=== PATIENT | male | born 1965 | race Caucasian/White ===

== ENCOUNTER 2017-11-29 11:24 | Emergency (ER) | payer OTHER ==
[2017-11-29] MEDS ORDERED: Nitroglycerin 0.4 MG Tab.SL SL PRN (11:36)
[2017-11-29] MEDS ORDERED: Clopidogrel 75 MG Tab PO ONE (11:36)
[2017-11-29] MEDS ORDERED: Morphine 2 MG/ML Syringe IVPUSH PRN (11:36)
[2017-11-29] MEDS ORDERED: Sodium Chloride 0.9% 10 ML Syringe FLUSH PRN ×2 (11:36)
[2017-11-29] MEDS ORDERED: Aspirin 81 MG Tab.Chew PO ONE (11:36)
[2017-11-29] MEDS ORDERED: Nitroglycerin/D5W 25 MG/250 ML BOTTLE IV SCH (11:45)
[2017-11-29] MEDS ORDERED: Metoprolol Tartrate 5 MG/5 ML SDV IVPUSH SCH (11:45)
--- NOTE | 2017-11-29 11:55 | EDM.PDOC ---
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) Gastrointestinal History: Reports: GERD Social & Family History - Tobacco Use Smoking Status *Q: Never Smoker ED ROS GENERAL - Review of Systems Review Of Systems: See Below Constitutional: Reports: Diaphoresis Respiratory: Reports: Shortness of Breath Cardiovascular: Reports: Chest Pain GI/Abdominal: Reports: Nausea ED EXAM, GENERAL - Physical Exam Exam: See Below Exam Limited By: No Limitations General Appearance: Alert, Moderate Distress Neck: Normal Inspection, Supple, Non-Tender, Full Range of Motion Respiratory/Chest: No Respiratory Distress, Lungs Clear, Normal Breath Sounds, No Accessory Muscle Use Cardiovascular: Regular Rate, Rhythm, No Murmur GI/Abdominal: Soft, Non-Tender EKG INTERPRETATION EKG Date: 11/29/17 Rhythm: NSR ST-T: Elevated Comparison: NA - No Prior EKG Course - Orders/Labs/Meds Orders: Active Orders 24 hr Category Date Time Status EKG Documentation Completion [RC] ASDIRECTED Care 11/29/17 11:38 Ordered Peripheral IV Care [RC] . DIRECTED Care 11/29/17 11:37 Ordered Metoprolol Tartrate [Lopressor] Med 11/29/17 11:45 Ordered 5 mg IVPUSH Q5M Morphine Med 11/29/17 11:36 Ordered 2 mg IVPUSH Q10M PRN Nitroglycerin [Nitrostat] Med 11/29/17 11:36 Ordered 0.4 mg SL Q5M PRN Nitroglycerin/D5W [Nitroglycerin 25 MG/D5W 250 ML] 250 Med 11/29/17 11:45 Ordered ml IV TITRATE Sodium Chloride 0.9% [Saline Flush] Med 11/29/17 11:36 Ordered 10 ml FLUSH ASDIRECTED PRN Sodium Chloride 0.9% [Saline Flush] Med 11/29/17 11:36 Ordered 10 ml FLUSH ASDIRECTED PRN Peripheral IV Insertion Adult [OM.PC] Stat Oth 11/29/17 11:36 Ordered EKG 12 Lead [EK] Stat Ther 11/29/17 11:36 Ordered Medication Orders Nitroglycerin/Dextrose (Nitroglycerin 25 Mg/D5w 250 Ml) 250 mls @ 6 mls/hr IV TITRATE [facility]; Protocol Metoprolol Tartrate (Lopressor) 5 mg IVPUSH Q5M JOSEF Stop: 11/30/17 11:37 Morphine Sulfate (Morphine) 2 mg IVPUSH Q10M PRN PRN Reason: Chest Pain Stop: 11/30/17 11:37 Nitroglycerin (Nitrostat) 0.4 mg SL Q5M PRN PRN Reason: Chest Pain Stop: 11/30/17 11:37 Sodium Chloride (Saline Flush) 10 ml FLUSH ASDIRECTED PRN PRN Reason: Keep Vein Open Sodium Chloride (Saline Flush) 10 ml FLUSH ASDIRECTED PRN PRN Reason: Keep Vein Open Meds: Medications Generic Name Dose Route Start Last Admin Trade Name Freq PRN Reason Stop Dose Admin Nitroglycerin/Dextrose 250 mls @ 6 mls/hr 11/29/17 11:45 Nitroglycerin 25 Mg/D5w 250 Ml IV TITRATE [facility] Protocol 10 MCG/MIN Metoprolol Tartrate 5 mg 11/29/17 11:45 Lopressor IVPUSH 11/30/17 11:37 Q5M JOSEF Morphine Sulfate 2 mg 11/29/17 11:36 Morphine IVPUSH 11/30/17 11:37 Q10M PRN Chest Pain Nitroglycerin 0.4 mg 11/29/17 11:36 Nitrostat SL 11/30/17 11:37 Q5M PRN Chest Pain Sodium Chloride 10 ml 11/29/17 11:36 Saline Flush FLUSH ASDIRECTED PRN Keep Vein Open Sodium Chloride 10 ml 11/29/17 11:36 Saline Flush FLUSH ASDIRECTED PRN Keep Vein Open Discontinued Medications Generic Name Dose Route Start Last Admin Trade Name Freq PRN Reason Stop Dose Admin Aspirin 324 mg 11/29/17 11:36 Aspirin PO 11/29/17 11:37 ONETIME ONE Clopidogrel Bisulfate 600 mg 11/29/17 11:36 Plavix PO 11/29/17 11:37 ONETIME ONE Departure - Departure Time of Disposition: 12:06 Disposition: DC/Tfer to Acute Hospital 02 Reason for Transfer *Q: Primary PCI Indicated Condition: Fair Clinical Impression: STEMI (ST elevation myocardial infarction) Qualifiers: Involved coronary artery: unspecified coronary artery Qualified Code(s): I21.3 - ST elevation (STEMI) myocardial infarction of unspecified site Referrals: PCP,None [Primary Care Provider] - - My Orders Last 24 Hours: My Active Orders 11/29/17 11:36 Morphine 2 mg IVPUSH Q10M PRN Nitroglycerin [Nitrostat] 0.4 mg SL Q5M PRN Sodium Chloride 0.9% [Saline Flush] 10 ml FLUSH ASDIRECTED PRN Sodium Chloride 0.9% [Saline Flush] 10 ml FLUSH ASDIRECTED PRN Peripheral IV Insertion Adult [OM.PC] Stat EKG 12 Lead [EK] Stat 11/29/17 11:37 Peripheral IV Care [RC] . DIRECTED 11/29/17 11:38 EKG Documentation Completion [RC] ASDIRECTED 11/29/17 11:45 Metoprolol Tartrate [Lopressor] 5 mg IVPUSH Q5M Nitroglycerin/D5W [Nitroglycerin 25 MG/D5W 250 ML] 250 ml IV TITRATE - Assessment/Plan Last 24 Hours: My Active Orders 11/29/17 11:36 Morphine 2 mg IVPUSH Q10M PRN Nitroglycerin [Nitrostat] 0.4 mg SL Q5M PRN Sodium Chloride 0.9% [Saline Flush] 10 ml FLUSH ASDIRECTED PRN Sodium Chloride 0.9% [Saline Flush] 10 ml FLUSH ASDIRECTED PRN Peripheral IV Insertion Adult [OM.PC] Stat EKG 12 Lead [EK] Stat 11/29/17 11:37 Peripheral IV Care [RC] . DIRECTED 11/29/17 11:38 EKG Documentation Completion [RC] ASDIRECTED 11/29/17 11:45 Metoprolol Tartrate [Lopressor] 5 mg IVPUSH Q5M Nitroglycerin/D5W [Nitroglycerin 25 MG/D5W 250 ML] 250 ml IV TITRATE Plan: Assessment Acuity = acute Site and laterality = ST elevation myocardial infarction Etiology = suspicious for underlying coronary artery disease Manifestations = pain, nausea, diaphoresis, dyspnea Location of injury = Home Lab values = EKG shows ST elevations in 23 and aVF no reciprocal changes noted lab work is pending chest x-ray pending Plan Called discussed case with Dr. Brambila cardiology at [facility] kindly accepted the patient in transport, will be transported via EMS ground, did receive 2 mg of morphine, [address], has received aspirin 25 mg has received 600 mg of Plavix did receive 1 sublingual nitroglycerin This note was dictated using [employer] voice recognition software please call with any questions on syntax or grammar.
[2017-11-29] MEDS ORDERED: Morphine 4 MG/ML Syringe IVPUSH ONE (12:08)
[2017-11-29] MEDS ORDERED: Morphine 4 MG/ML Syringe ONE (12:10)
== END 2017-11-29 12:15 ==
LOC: JP.ED 11:24 → EDBD 11:24 → JP.ED 12:15
DX: I21.3 ST elevation (STEMI) myocardial infarction of unspecified site (principal)
CPT/HCPCS: 36415; 80053; 84484; 85025; 85610; 93005; 96374; 96375; 96376; 99285; A9270; J2270; 99284